=== PATIENT | female | born 1985 | race African-American/Black ===

== ENCOUNTER → 2017-01-13 | Outpatient (CLI) | payer OTHER ==
--- NOTE | 2017-01-13 13:49 | RAD ---
Obstetrical ultrasound, 01/13/2017: History: Check size and dates Transabdominal and transvaginal scans were obtained. The transabdominal scans are of limited value due to lack of bladder distention. There is a single intrauterine gestational sac. It contains a yolk sac and a pole demonstrating a crown-rump length of 1.2 cm. This suggests a gestational age of 7 weeks and 2 days, yielding a sonographic EDC of 08/30/2017. cardiac activity is present. There is a small hypoechoic area along the margin of the gestational sac. It measures approximately 6 mm in thickness and 20 mm in length. The appearance suggests a small subchorionic hemorrhage. The left ovary is unremarkable. The right ovary was not visualized. No free fluid is evident in the pelvis. IMPRESSION: 1. Single viable intrauterine fetus of 7-8 weeks gestational age. 2. Small subchorionic hemorrhage.
== END | disposition home or self-care (01) ==
LOC: US 12:14
DX: O20.8 Other hemorrhage in early pregnancy (principal); Z3A.08 8 weeks gestation of pregnancy
CPT/HCPCS: 76801; 76817

== ENCOUNTER → 2017-01-13 | Outpatient (CLI) | payer OTHER ==
--- NOTE | 2017-01-13 13:13 | RAD ---
Examination: 2 views of the chest History: History of positive TB reaction Comparison: None available Findings : The cardiomediastinal silhouette grossly appears unremarkable. There is no acute infiltrate or visualized pneumothorax identified. Impression: No acute cardiopulmonary findings.
== END | disposition home or self-care (01) ==
LOC: RAD 12:26
PROVIDERS: ATTEND Nurse Practitioner
DX: R76.12 Nonspecific reaction to cell mediated immunity measurement of gamma interferon antigen response without active tuberculosis (principal)
CPT/HCPCS: 71020

== ENCOUNTER 2017-07-23 01:33 | Observation (INO) | payer OTHER ==
[2017-07-23] MEDS ORDERED: IV RINGERS,LACTATED 1000ML 1,000 ML IV SCH (01:45)
[2017-07-23 01:48] LABS: BILIRUBIN,URINE NEGATIVE (NEG); GLUCOSE,URINE NEGATIVE (NEG); NITRITE,URINE NEGATIVE (NEG); PROTEIN,URINE NEGATIVE (NEG-TRACE); UROBILINOGEN,URINE 0.2 mg/dL (0.2 mg/dL)
[2017-07-23 01:55] LABS: BARBITURATES NEG (NEG); BENZODIAZEPINES NEG (NEG); CANNABINOIDS NEG (NEG); COCAINE NEG (NEG); METHADONE NEG (NEG); OPIATES NEG (NEG); PHENCYCLIDINE NEG (NEG)
[2017-07-23 02:05] LABS: BACTERIA,URINE MODERATE /HPF (0-FEW); RBC,URINE OCC /HPF (0-2); SQUAMOUS EPITHELIAL CELL,UR FEW /LPF
[2017-07-23] MEDS ORDERED: hydrOXYzine PAMOATE 25 MG CAPSULE PO ONE (02:45)
== END 2017-07-23 05:31 | disposition home or self-care (01) ==
LOC: 3 SO LND 01:33
PROVIDERS: ADMIT Specialist; ATTEND Specialist
DX: O26.893 Other specified pregnancy related conditions, third trimester (principal); M54.9 Dorsalgia, unspecified; R10.9 Unspecified abdominal pain; Z3A.35 35 weeks gestation of pregnancy
CPT/HCPCS: 80307; 81001; 87086; G0378; G0379; Q0177; G0479

== ENCOUNTER 2020-11-14 21:19 | Emergency (ER) | payer OTHER ==
[~2020-11-14] VITALS: Ht 165.1 cm; Wt 133.1 kg
[2020-11-14 21:53] LABS: BILIRUBIN,URINE NEGATIVE (NEG); CLARITY,URINE CLOUDY; COLOR,URINE YELLOW; NITRITE,URINE NEGATIVE (NEG); PROTEIN,URINE NEGATIVE (NEG-TRACE)
--- NOTE | 2020-11-14 22:00 | PHYS DOC ---
Past Medical History Past Medical History: No Pertinent History (RODERICK MATHIAS MATERIALS TECH) Past Surgical History: (RODERICK MATHIAS APRN) Smoking Status: Never Smoker Alcohol Use: None (RODERICK MATHIAS APRN) General Adult EDM: Chief Complaint: GI PROBLEM HPI: HPI: Patient is a 35 year old female who presents with epigastric sharp pain that comes and goes and she states it hurts when she takes of breath. Patient states started today at 1400. She states she had not ate anything. Patient denies nausea, vomiting, cough, fever, back pain, headache, dizziness, diarrhea, numbness or tingling. She states she took some ibuprofen at that time but it did not help. She states that she put an ice pack over the area did help. Patient's only history she states is C-sections. (RODERICK MATHIAS MATERIALS TECH) Review of Systems: Review of Systems: Constitutional: Denies fever or chills. [] Eyes: Denies change in visual acuity. [] HENT: Denies nasal congestion or sore throat. [] Respiratory: Denies cough. +shortness of breath. [] Cardiovascular: Denies chest pain or edema. [] GI: + Epigastric abdominal pain, denies nausea, vomiting, bloody stools or diarrhea. [] : Denies dysuria. [] Musculoskeletal: Denies back pain or joint pain. [] Integument: Denies rash. [] Neurologic: Denies headache, focal weakness or sensory changes. [] Endocrine: Denies polyuria or polydipsia. [] Lymphatic: Denies swollen glands. [] Psychiatric: Denies depression or anxiety. [] (RODERICK MATHIAS MATERIALS TECH) Heart Score: Risk Factors: Risk Factors: DM, Current or recent (<one month) smoker, HTN, HLP, family history of CAD, obesity. Risk Scores: Score 0 - 3: 2.5% MACE over next 6 weeks - Discharge Home Score 4 - 6: 20.3% MACE over next 6 weeks - Admit for Clinical Observation Score 7 - 10: 72.7% MACE over next 6 weeks - Early Invasive Strategies (RODERICK MATHIAS MATERIALS TECH) Allergies: Allergies: Allergies Coded Allergies Type Severity Reaction Last Updated Verified No Known Drug Allergies 07/23/17 No (RODERICK MATHIAS APRN) Physical Exam: PE: Constitutional: Well developed, well nourished, no acute distress, non-toxic appearance. [] HENT: Normocephalic, atraumatic, bilateral external ears normal, oropharynx moist, no oral exudates, nose normal. [] Eyes: PERRLA, EOMI, conjunctiva normal, no discharge. [] Neck: Normal range of motion, no tenderness, supple, no stridor. [] Cardiovascular:Heart rate regular rhythm, no murmur [] Lungs & Thorax: Bilateral breath sounds clear to auscultation [] Abdomen: Bowel sounds normal, soft, no tenderness, no masses, no pulsatile masses. [] Skin: Warm, dry, no erythema, no rash. [] Back: No tenderness, no CVA tenderness. [] Extremities: No tenderness, no cyanosis, no clubbing, ROM intact, no edema. [] Neurologic: Alert and oriented X 3, normal motor function, normal sensory function, no focal deficits noted. [] Psychologic: Affect normal, judgement normal, mood normal. Normal physical exam [] (RODERICK MATHIAS APRN) Current Patient Data: Labs: Laboratory Tests Test 11/14/20 21:48 POC Urine HCG, Qualitative Hcg negative (Negative) Vital Signs: Vital Signs Date Time Temp Pulse Resp B/P (MAP) Pulse Ox O2 Delivery O2 Flow Rate FiO2 11/14/20 21:33 97.6 82 16 164/97 (119) 98 Room Air 97.6 (RODERICK MATHIAS APRN) EKG: EK and read as normal sinus rhythm and no STEMI. [] (RODERICK MATHIAS APRN) Radiology/Procedures: Radiology/Procedures: [] Impression: [facility] [address] [place] [address] IMAGING REPORT Signed PATIENT: KUMAR CAMACHO ACCOUNT: [id number] : 1985 LOCATION: ER AGE: 35 SEX: F EXAM STATUS: REG ER ORD. PHYSICIAN: RODERICK MATHIAS APRN REASON: EPIGASTRIC PAIN, SOA PROCEDURE: PORTABLE CHEST 1V XR CHEST 1V History: Reason: EPIGASTRIC PAIN, SOA / Spl. Instructions: / History: Comparison: January 13, 2017 Findings: No consolidation or pleural effusion. Normal heart size. No pneumothorax. Impression: 1. No acute cardiopulmonary process. Electronically signed by: Stephan Samson DO (11/14/2020 10:27 PM) [facility] DICTATED and SIGNED BY: STEPHAN SAMSON DO DATE: 11/14/20 [id number] [facility] [address] [place] [address] IMAGING REPORT Signed PATIENT: KUMAR CAMACHO ACCOUNT: [id number] : 1985 LOCATION: ER AGE: 35 SEX: F EXAM STATUS: REG ER ORD. PHYSICIAN: RODERICK MATHIAS APRN REASON: pain with breathing, soa, ABD PAIN, OMNI 350 100 ML IV PROCEDURE: CT ANGIO CHEST W ABD PEL W/ EXAM: CT chest with contrast - pulmonary embolus protocol CLINICAL HISTORY: Reason: pain with breathing, soa, ABD PAIN, OMNI 350 100 ML IV / Spl. Instructions: / History: . COMPARISON: None. TECHNIQUE: CT of the chest following the administration of intravenous contrast during the pulmonary arterial phase. Axial, coronal and sagittal reformatted images were generated including MIP images. ---PQRS compliance statement - One or more of the following individualized dose reduction techniques were utilized for this study: 1. Automated exposure control 2. Adjustment of the mA and/or kV according to patient size 3. Use of iterative reconstruction technique--- FINDINGS: CHEST: Diagnostic quality: Suboptimal. Pulmonary emboli: No pulmonary emboli to the level of the segmental branches. More peripheral vessels are not well assessed. Right heart strain: None Pulmonary arteries: Normal in caliber. Heart is not enlarged. No pericardial effusion. No pleural effusion or pneumothorax. Thickening of the distal esophagus. No axillary lymphadenopathy. No mediastinal or hilar lymphadenopathy. Anterior mediastinal soft tissue density may represent residual sinus or prominent pericardial recess. Linear opacities in the middle lobe likely scarring/atelectasis. 5 mm right lower lobe lung nodule (image 113) is seen. Visualized Upper abdomen: Please see CT abdomen and pelvis report below for full pelvis details. Bones: No aggressive osseous lesion is seen. IMPRESSION: 1. Suboptimal contrast bolus. Within these constraints, no pulmonary emboli to the level of the segmental branches. More peripheral vessels are not well assessed. 2. 5 mm right lower lobe lung nodule. In a patient at low risk for lung cancer, no further follow-up is necessary. In a high-risk patient, follow-up CT in 12 months is recommended. 3. Diffuse distal esophageal thickening, nonspecific but may be seen with esophagitis. EXAM: CT Abdomen and Pelvis with IV contrast CLINICAL HISTORY: Reason: pain with breathing, soa, ABD PAIN, OMNI 350 100 ML IV / Spl. Instructions: / History: . COMPARISON: none TECHNIQUE: Helical CT of the abdomen and pelvis was performed following the administration of intravenous contrast. Axial, coronal and sagittal reformatted images were generated. PQRS compliance statement - One or more of the following individualized dose reduction techniques were utilized for this study: 1. Automated exposure control 2. Adjustment of the mA and/or kV according to patient size 3. Use of iterative reconstruction technique FINDINGS: Lower chest: Please see CT chest report above for full details. Abdomen and Pelvis: Mild hepatic hypoattenuation, likely fatty liver. Spleen, adrenal glands, pancreas and gallbladder are normal in appearance. No biliary duct dilatation. Symmetric nephrograms. No focal renal lesion. No hydronephrosis. Bladder is unremarkable. Appendix is normal. Moderate colonic stool content is seen. No small or large bowel dilatation. No bowel obstruction. Small fat-containing periumbilical hernia is seen. No associated inflammatory change. No abdominal or pelvic lymphadenopathy. No abdominal or pelvic ascites. No pn eumoperitoneum. Aorta is normal in caliber. Bones: Degenerative changes of the lower lumbar spine. IMPRESSION: 1. Hepatic hypoattenuation, likely fatty liver. 2. Moderate colonic stool content to be correlated for possible constipation. No bowel obstruction. 3. Appendix is normal. 4. Small fat-containing periumbilical hernia without associated inflammatory change. Electronically signed by: Roby Mariano MD (11/14/2020 11:28 PM) [facility] DI[facility]ATED and SIGNED BY: ROBY MARIANO MD DATE: 11/14/20 [id number] (RODERICK MATHIAS APRN) Course & Med Decision Making: Course & Med Decision Making Pertinent Labs and Imaging studies reviewed. (See chart for details) See HPI. Abdomen is soft and nontender. Speaks in full complete sentences. Ambulatory to steady gait. Skin pink warm and dry. There is no pain over the chest with palpation. Afebrile. Lungs are clear in upper lobes and diminished in lower lobes. [] (RODERICK MATHIAS APRN) Course & Med Decision Making I oversaw on the above date of service of this patient and discussed the care with the SENIOR APPLICATION SOFTWARE ENGINEER. I agree with the findings, plan of care, and disposition as documented. (YESIKA ACUNA DO) Dragon Disclaimer: Dragon Disclaimer: This electronic medical record was generated, in whole or in part, using a voice recognition dictation system. (RODERICK MATHIAS APRN) Departure Departure Impression: Primary Impression: Esophagitis Additional Impressions: Constipation Qualified Codes: K59.00 - Constipation, unspecified UTI (urinary tract infection) Qualified Codes: N39.0 - Urinary tract infection, site not specified Disposition: 01 DC HOME SELF CARE/HOMELESS Condition: STABLE Referrals: NO PCP (PCP) GARRETT VILLANUEVA MD Patient Instructions: Constipation, Adult, Diet for Gastroesophageal Reflux Disease, Adult, Esophagitis, Gastroesophageal Reflux Disease, Adult Additional Instructions: Follow up with primary care physician or GI doctor of which I have referred you too. Drink plenty of fluids. Take medication as prescribed. For worsening symptoms return to the ED. Scripts Cephalexin (CEPHALEXIN) 500 Mg Capsule 1 CAP PO BID for 7 Days, #14 CAP Prov: RAJATSAGRARIO JIMENEZDivina Sanchez APRN 11/14/20 Docusate Sodium (COLACE) 100 Mg Capsule 1 CAP PO BID for 30 Days, #60 CAP 0 Refills Prov: RODERICK MATHIAS APRN 11/14/20 Famotidine (PEPCID) 20 Mg Tablet 20 MG PO BID for 30 Days, #60 TAB Prov: RAJATRODERICKPOOJA Sanchez APRN 11/14/20 STEWRODERICKPOOJA Sanchez APRN Nov 14, 2020 22:00 YESIKA ACUNA DO Nov 15, 2020 00:36
[2020-11-14 22:02] LABS: BACTERIA,URINE MANY /HPF (0-FEW)
[2020-11-14 22:04] LABS: RBC,URINE 0 /HPF (0-2); YEAST,URINE PRESENT /HPF
[2020-11-14 22:19] LABS: BASO # 0.1 x10^3/uL (0.0-0.2); BASO % 1 % (0-3); EOS # 0.2 x10^3/uL (0.0-0.7); EOS % 2 % (0-3); HEMATOCRIT 38.5 % (36.0-47.0); HEMOGLOBIN 12.5 g/dL (12.0-15.5); LYMPH # 3.2 x10^3/uL (1.0-4.8); LYMPH % 29 % (24-48); MEAN CORPUSCULAR HEMOGLOBIN 25 pg (25-35); MEAN CORPUSCULAR HGB CONC 33 g/dL (31-37); MEAN CORPUSCULAR VOLUME 77 fL (79-100); MONO # 0.7 x10^3/uL (0.0-1.1); MONO % 7 % (0-9); NEUT # 6.7 x10^3/uL (1.8-7.7); NEUT % 62 % (31-73); PLATELET COUNT 258 x10^3/uL (140-400); RED CELL DISTRIBUTION WIDTH 15.2 % (11.5-14.5); WHITE BLOOD COUNT 10.9 x10^3/uL (4.0-11.0)
--- NOTE | 2020-11-14 22:29 | RAD ---
XR CHEST 1V History: Reason: EPIGASTRIC PAIN, SOA / Spl. Instructions: / History: Comparison: January 13, 2017 Findings: No consolidation or pleural effusion. Normal heart size. No pneumothorax. Impression: 1. No acute cardiopulmonary process. Electronically signed by: Stephan Samson DO (11/14/2020 10:27 PM) [facility]
[2020-11-14 22:30] LABS: CALCIUM 9.5 mg/dL (8.5-10.1); CREATININE 0.9 mg/dL (0.6-1.0); GFR 85.2; POTASSIUM 4.1 mmol/L (3.5-5.1)
[2020-11-14] MEDS ORDERED: IV NORMAL SALINE 1000ML BAG 1,000 ML IV SCH (22:30)
[2020-11-14] MEDS ORDERED: FAMOTIDINE 20 MG/2 ML VIAL IVP ONE (22:30)
[2020-11-14] MEDS ORDERED: fentaNYL PF VIAL 100 MCG/2 ML VIAL IVP ONE (22:30)
[2020-11-14] MEDS ORDERED: ASPIRIN 325 MG TABLET PO ONE (22:30)
[2020-11-14 22:35] LABS: ALBUMIN 3.5 g/dL (3.4-5.0); ALBUMIN/GLOBULIN RATIO 0.9 (1.0-1.7); TOTAL BILIRUBIN 0.2 mg/dL (0.2-1.0); TOTAL PROTEIN 7.6 g/dL (6.4-8.2)
[2020-11-14] MEDS ORDERED: FLUCONAZOLE 100 MG TABLET. PO ONE (23:00)
[2020-11-14] MEDS ORDERED: CONTRAST GIVEN. MC PRN (23:00)
[2020-11-14] MEDS ORDERED: IOHEXOL 350 MG/ML 100 ML VIAL. IV ONE (23:30)
--- NOTE | 2020-11-14 23:31 | RAD ---
EXAM: CT chest with contrast - pulmonary embolus protocol CLINICAL HISTORY: Reason: pain with breathing, soa, ABD PAIN, OMNI 350 100 ML IV / Spl. Instructions: / History: . COMPARISON: None. TECHNIQUE: CT of the chest following the administration of intravenous contrast during the pulmonary arterial phase. Axial, coronal and sagittal reformatted images were generated including MIP images. ---PQRS compliance statement - One or more of the following individualized dose reduction techniques were utilized for this study: 1. Automated exposure control 2. Adjustment of the mA and/or kV according to patient size 3. Use of iterative reconstruction technique--- FINDINGS: CHEST: Diagnostic quality: Suboptimal. Pulmonary emboli: No pulmonary emboli to the level of the segmental branches. More peripheral vessel s are not well assessed. Right heart strain: None Pulmonary arteries: Normal in caliber. Heart is not enlarged. No pericardial effusion. No pleural effusion or pneumothorax. Thickening of the distal esophagus. No axillary lymphadenopathy. No mediastinal or hilar lymphadenopathy. Anterior mediastinal soft tissu e density may represent residual sinus or prominent pericardial recess. Linear opacities in the middl e lobe likely scarring/atelectasis. 5 mm right lower lobe lung nodule (image 113) is seen. Visualized Upper abdomen: Please see CT abdomen and pelvis report below for full pelvis details. Bones: No aggressive osseous lesion is seen. IMPRESSION: 1. Suboptimal contrast bolus. Within these constraints, no pulmonary emboli to the level of the segm ental branches. More peripheral vessels are not well assessed. 2. 5 mm right lower lobe lung nodule. In a patient at low risk for lung cancer, no further follow-up is necessary. In a high-risk patient, follow-up CT in 12 months is recommended. 3. Diffuse distal esophageal thickening, nonspecific but may be seen with esophagitis. EXAM: CT Abdomen and Pelvis with IV contrast CLINICAL HISTORY: Reason: pain with breathing, soa, ABD PAIN, OMNI 350 100 ML IV / Spl. Instructions: / History: . COMPARISON: none TECHNIQUE: Helical CT of the abdomen and pelvis was performed following the administration of intrave nous contrast. Axial, coronal and sagittal reformatted images were generated. PQRS compliance statement - One or more of the following individualized dose reduction techniques wer e utilized for this study: 1. Automated exposure control 2. Adjustment of the mA and/or kV according to patient size 3. Use of iterative reconstruction technique FINDINGS: Lower chest: Please see CT chest report above for full details. Abdomen and Pelvis: Mild hepatic hypoattenuation, likely fatty liver. Spleen, adrenal glands, pancreas and gallbladder ar e normal in appearance. No biliary duct dilatation. Symmetric nephrograms. No focal renal lesion. No hydronephrosis. Bladder is unremarkable. Appendix is normal. Moderate colonic stool content is seen. No small or large bowel dilatation. No nic wel obstruction. Small fat-containing periumbilical hernia is seen. No associated inflammatory change. No abdominal or pelvic lymphadenopathy. No abdominal or pelvic ascites. No pneumoperitoneum. Aorta is normal in caliber. Bones: Degenerative changes of the lower lumbar spine. IMPRESSION: 1. Hepatic hypoattenuation, likely fatty liver. 2. Moderate colonic stool content to be correlated for possible constipation. No bowel obstruction. 3. Appendix is normal. 4. Small fat-containing periumbilical hernia without associated inflammatory change. Electronically signed by: Roby Baca MD (11/14/2020 11:28 PM) [facility]
[2020-11-14] MEDS ORDERED: FAMO-63 PO (23:38)
[2020-11-14] MEDS ORDERED: DOCU-109 PO (23:38)
[2020-11-14] MEDS ORDERED: CEPH500C PO (23:38)
[2020-11-15 00:10] VITALS: BP 122/55
--- NOTE | 2020-11-15 18:36 | EKG ---
[facility] [address] [place] [address] Test Date: 2020-11-14 Test Time: 22:32:12 Pat Name: KUMAR CAMACHO Department: Room: Gender: F Returned Case Inspector: : 1985 Requested By: RODERICK MATHIAS Order Number: [id number] Reading MD: Measurements Intervals [place] Rate: 64 P: 26 NC: 168 QRS: 4 QRSD: 92 T: 0 QT: 392 QTc: 404 Interpretive Statements SINUS RHYTHM NORMAL ECG RI6.01 No previous ECG available for comparison
== END 2020-11-15 00:16 | disposition home or self-care (01) ==
LOC: ER 21:19
DX: K20.90 Esophagitis, unspecified without bleeding (principal); N39.0 Urinary tract infection, site not specified; K59.00 Constipation, unspecified
CPT/HCPCS: 36415; 71045; 71275; 74177; 80053; 81001; 81025; 83690; 83880; 84484; 85025; 85379; 87086; 93005; 96361; 96374; 96375; 99285; J3010; J3490; J7030; Q9967

== ENCOUNTER 2021-06-06 20:55 | Emergency (ER) | payer OTHER ==
[~2021-06-06] VITALS: Ht 162.6 cm; Wt 127.3 kg
[~2021-06-06 20:55] MED LIST: CEPH500C PO; DOCU-109 PO; FAMO-63 PO
[2021-06-06] MEDS ORDERED: PROCHLORPERAZINE 10 MG/2 ML VIAL. IV ONE (22:45)
[2021-06-06] MEDS ORDERED: IV NORMAL SALINE 1000ML BAG 1,000 ML IV ONE (22:45)
--- NOTE | 2021-06-06 23:08 | PHYS DOC ---
Past Medical History Past Medical History: No Pertinent History (JAVON DASILVA IT FIELD TECHNICIAN) Past Surgical History: (JAVON DASILVA IT FIELD TECHNICIAN) Smoking Status: Never Smoker Alcohol Use: None (JAVON DASILVA IT FIELD TECHNICIAN) General Adult EDM: Chief Complaint: HEADACHE HPI: HPI: Patient is a 36 year old female 9 para 8 with 6 living children and 2 children, currently 20 weeks presenting to the ED today complainin g of mild frontal headache, generalized weakness and fatigue that began today 30 minutes prior to coming to the ED. Patient denies any abdominal pain, vaginal bleeding, nausea vomiting. She states she follows up with [facility] [employer]. Denies any back pain. She states she received her first Covid vaccine 3 weeks ago and is due for another one (JAVON DASILVA ) Review of Systems: Review of Systems: Constitutional: Reports fatigue, generalized weakness. Denies fever or chills. [] Eyes: Denies change in visual acuity. [] HENT: Denies nasal congestion or sore throat. [] Respiratory: Denies cough or shortness of breath. [] Cardiovascular: Denies chest pain or edema. [] GI: Reports being . Denies abdominal pain, nausea, vomiting, bloody stools or diarrhea. [] : Denies dysuria. [] Musculoskeletal: Denies back pain or joint pain. [] Integument: Denies rash. [] Neurologic: Reports headache, denies focal weakness or sensory changes. [] Endocrine: Denies polyuria or polydipsia. [] Lymphatic: Denies swollen glands. [] Psychiatric: Denies depression or anxiety. [] (JAVON DASILVA IT FIELD TECHNICIAN) Heart Score: C/O Chest Pain: N/A Risk Factors: Risk Factors: DM, Current or recent (<one month) smoker, HTN, HLP, family history of CAD, obesity. Risk Scores: Score 0 - 3: 2.5% MACE over next 6 weeks - Discharge Home Score 4 - 6: 20.3% MACE over next 6 weeks - Admit for Clinical Observation Score 7 - 10: 72.7% MACE over next 6 weeks - Early Invasive Strategies (JAVON DASILVA IT FIELD TECHNICIAN) Current Medications: Current Medications Medications (Trade) Dose Ordered Sig/Shauna Start Time Stop Time Status Last Admin Dose Admin Prochlorperazine Edisylate (Compazine) 10 mg 1X ONCE 06/06/21 22:45 06/06/21 22:46 DC Sodium Chloride 1,000 ml @ 1,000 mls/hr 1X ONCE 06/06/21 22:45 06/06/21 23:44 (JAVON DASILVA IT FIELD TECHNICIAN) Allergies: Allergies: Allergies Coded Allergies Type Severity Reaction Last Updated Verified No Known Drug Allergies 07/23/17 No (JAVON DASILVA IT FIELD TECHNICIAN) Physical Exam: PE: Constitutional: Well developed, well nourished, no acute distress, non-toxic appearance. [] HENT: Normocephalic, atraumatic, bilateral external ears normal, oropharynx moist, no oral exudates, nose normal. [] Eyes: PERRLA, EOMI, conjunctiva normal, no discharge. [] Neck: Normal range of motion, no tenderness, supple, no stridor. [] Cardiovascular:Heart rate regular rhythm, no murmur [] Lungs & Thorax: Bilateral breath sounds clear to auscultation [] Abdomen: Gravid abdomen. Bowel sounds normal, soft, no tenderness, no masses, no pulsatile masses. [] Skin: Warm, dry, no erythema, no rash. [] Back: No tenderness, no CVA tenderness. [] Extremities: No tenderness, no cyanosis, no clubbing, ROM intact, no edema. [] Neurologic: Alert and oriented X 3, normal motor function, normal sensory function, no focal deficits noted. Cranial nerves II through XII intact Psychologic: Affect normal, judgement normal, mood normal. [] (JAVNO DASILVA IT FIELD TECHNICIAN) Current Patient Data: Vital Signs: Vital Signs Date Time Temp Pulse Resp B/P (MAP) Pulse Ox O2 Delivery O2 Flow Rate FiO2 06/06/21 20:58 98.8 103 18 117/67 (77) 97 Room Air 98.8 (JAVON DASILVA IT FIELD TECHNICIAN) Vital Signs: Vital Signs Date Time Temp Pulse Resp B/P (MAP) Pulse Ox O2 Delivery O2 Flow Rate FiO2 06/07/21 00:24 78 19 97 06/06/21 23:54 80 19 96 06/06/21 23:24 80 18 98 06/06/21 22:58 92 18 98 8/7/21 22:24 82 18 98 06/06/21 20:58 98.8 103 18 117/67 (77) 97 Room Air 98.8 (SRI MIDDLETON DO) EKG: EKG: [] (JAVON DASILVA APRN) Radiology/Procedures: Radiology/Procedures: [] (JAVON DASILVA APRN) Course & Med Decision Making: Course & Med Decision Making Pertinent Labs and Imaging studies reviewed. (See chart for details) This is a 36-year-old female patient 9 para 8 presenting today complaining of generalized weakness, frontal headache, fatigue, symptoms began 30 minutes prior to coming to the ED. Labs were ordered. heart tones also ordered. [address] Middleton (JAVON DASILVA APRN) Course & Med Decision Making I assumed care pending urine which showed moderate bacteria, ketones. Patient was given sugar containing fluids. Likely dehydration. Her heart tones were 140-150s and appeared within normal limits. She clinically appears improved upon reevaluation and is stable for discharge with follow-up with [facility] (SRI MIDDLETON DO) Dragon Disclaimer: Skyler Disclaimer: This electronic medical record was generated, in whole or in part, using a voice recognition dictation system. (JAVON DASILVA APRN) Departure Departure Impression: Primary Impression: Headache Additional Impression: Weakness Disposition: 01 HOME / SELF CARE / HOMELESS Condition: GOOD Referrals: NO PCP (PCP) Additional Instructions: You are treated in the emergency department for dehydration. Your heart tones were within normal limits. You need to follow-up with your [facility] [facility] [employer] [employer] provider at your earliest convenience. Return to the emergency department there are any further concerns. I sent a prescription of Macrobid to your [facility] pharmacy, please draft roller picker this prescription and take for the full amount to treat the bacteria that we found in your urine today Scripts Nitrofurantoin Monohyd/M-Cryst (MACROBID 100 MG CAPSULE) 100 Mg Capsule 1 CAP PO BID for 5 Days, #10 CAP 0 Refills Prov: SRI MIDDLETON DO 06/07/21 JAVON DASILVA APRN Jun 06, 2021 23:08 SRI MIDDLETON DO Jun 07, 2021 03:38
[2021-06-06 23:12] LABS: BASO # 0.1 x10^3/uL (0.0-0.2); BASO % 1 % (0-3); EOS # 0.1 x10^3/uL (0.0-0.7); EOS % 1 % (0-3); HEMATOCRIT 32.7 % (36.0-47.0); HEMOGLOBIN 10.7 g/dL (12.0-15.5); LYMPH # 1.9 x10^3/uL (1.0-4.8); LYMPH % 20 % (24-48); MEAN CORPUSCULAR HEMOGLOBIN 24 pg (25-35); MEAN CORPUSCULAR HGB CONC 33 g/dL (31-37); MEAN CORPUSCULAR VOLUME 74 fL (79-100); MONO # 0.6 x10^3/uL (0.0-1.1); MONO % 6 % (0-9); NEUT # 6.8 x10^3/uL (1.8-7.7); NEUT % 72 % (31-73); PLATELET COUNT 245 x10^3/uL (140-400); RED BLOOD COUNT 4.42 x10^6/uL (3.50-5.40); RED CELL DISTRIBUTION WIDTH 16.8 % (11.5-14.5); WHITE BLOOD COUNT 9.4 x10^3/uL (4.0-11.0)
[2021-06-06 23:23] LABS: CREATININE 0.7 mg/dL (0.6-1.0); GFR 113.3; POTASSIUM 3.5 mmol/L (3.5-5.1)
[2021-06-06 23:29] LABS: ALBUMIN 2.9 g/dL (3.4-5.0); ALBUMIN/GLOBULIN RATIO 0.7 (1.0-1.7); TOTAL BILIRUBIN 0.1 mg/dL (0.2-1.0); TOTAL PROTEIN 7.2 g/dL (6.4-8.2)
[2021-06-07 01:46] LABS: BILIRUBIN,URINE NEGATIVE (NEG); CLARITY,URINE CLEAR; COLOR,URINE YELLOW; NITRITE,URINE NEGATIVE (NEG); PROTEIN,URINE 30 mg/dL (NEG-TRACE); UROBILINOGEN,URINE 0.2 mg/dL (0.2 mg/dL)
[2021-06-07 02:01] LABS: BACTERIA,URINE MODERATE /HPF (0-FEW); RBC,URINE 0 /HPF (0-2)
[2021-06-07] MEDS ORDERED: IV NORMAL SALINE 1000ML BAG 1,000 ML IV ONE (02:15)
[2021-06-07] MEDS ORDERED: IV DEXTROSE 5% - 0.9 % NACL 1,000 ML IV ONE (02:15)
[2021-06-07] MEDS ORDERED: NITR100C62 PO (03:36)
[2021-06-07 03:54] VITALS: BP 100/55
--- NOTE | 2021-06-08 11:59 | NUR ---
IP: Attempted to contact pt concerning covid results. No answer, no voicemail box.
--- NOTE | 2021-06-09 10:39 | NUR ---
IP: Attempted a second time to contact pt concerning covid results. Again no answer.
== END 2021-06-07 04:28 | disposition home or self-care (01) ==
LOC: ER 20:55
DX: O26.892 Other specified pregnancy related conditions, second trimester (principal); Z20.822 Contact with and (suspected) exposure to COVID-19; R51.9 Headache, unspecified; R53.1 Weakness; Z3A.20 20 weeks gestation of pregnancy
CPT/HCPCS: 36415; 80053; 81001; 81025; 85025; 87086; 87426; 96361; 96365; 96375; 99285; J0780; J7030; J7042; U0003; U0005

== ENCOUNTER 2021-10-31 09:32 | Emergency (ER) | payer OTHER ==
[~2021-10-31] VITALS: Ht 162.6 cm; Wt 127.0 kg
[~2021-10-31 09:32] MED LIST changes: +NITR100C62 PO
[2021-10-31 09:47] VITALS: BP 167/113
[2021-10-31 10:43] LABS: BASO % 1 % (0-3); EOS # 0.1 x10^3/uL (0.0-0.7); EOS % 2 % (0-3); HEMATOCRIT 29.6 % (36.0-47.0); HEMOGLOBIN 9.7 g/dL (12.0-15.5); LYMPH # 1.6 x10^3/uL (1.0-4.8); LYMPH % 27 % (24-48); MEAN CORPUSCULAR HEMOGLOBIN 26 pg (25-35); MEAN CORPUSCULAR HGB CONC 33 g/dL (31-37); MEAN CORPUSCULAR VOLUME 80 fL (79-100); MONO # 0.5 x10^3/uL (0.0-1.1); MONO % 8 % (0-9); NEUT # 3.8 x10^3/uL (1.8-7.7); NEUT % 63 % (31-73); PLATELET COUNT 256 x10^3/uL (140-400); RED BLOOD COUNT 3.72 x10^6/uL (3.50-5.40); RED CELL DISTRIBUTION WIDTH 18.6 % (11.5-14.5); WHITE BLOOD COUNT 6.1 x10^3/uL (4.0-11.0)
[2021-10-31] MEDS ORDERED: CONTRAST GIVEN. MC PRN (10:45)
[2021-10-31] MEDS ORDERED: IOHEXOL 300 MG/ML 100ML VIAL. IV ONE (10:45)
[2021-10-31 10:49] LABS: CALCIUM 8.2 mg/dL (8.5-10.1); CREATININE 0.7 mg/dL (0.6-1.0); GFR 113.3; POTASSIUM 4.3 mmol/L (3.5-5.1)
--- NOTE | 2021-10-31 11:52 | RAD ---
EXAMINATION: CT abdomen and pelvis with IV contrast. INDICATION:36 years, Female, vertical wound dehiscence, foul-smelling. TECHNIQUE: Axial CT images of the abdomen and pelvis were obtained. Coronal and sagittal reformatted performed. COMPARISON: None. Exposure: One or more of the following individualized dose reduction techniques were utilized for thi s examination: 1. Automated exposure control 2. Adjustment of the mA and/or kV according to patient size 3. Use of iterative reconstruction technique. FINDINGS: LOWER CHEST: Unremarkable. ABDOMEN/PELVIS: Mild hepatomegaly measures up to 18 cm in length. Subcentimeter hypodensity in the left hepatic lobe, too small to characterize. Mild splenomegaly measures up to 14 cm in length. Gallbladder, biliary du cts, pancreas, adrenals and kidneys are unremarkable. No bowel obstruction. Unremarkable appendix. Normal caliber abdominal aorta. Mesenteric arteries and portal vein are patent. No abdominopelvic lymphadenopathy by size criteria. No pneumoperitoneum or as cites. Underdistended urinary bladder which limits evaluation. Grossly unremarkable uterus. Minimal f at stranding in the pelvis, likely postsurgical. MUSCULOSKELETAL STRUCTURES: Postsurgical changes along the lower anterior abdominal wall with diffuse skin thickening and fat str anding. Multiloculated 13.5 x 3.0 x 3.7 cm rim-enhancing fluid collection in the subcutaneous tissue of the anterior lower abdominal wall, inseparable from the abdomen wall musculatures. Small fat-conta ining umbilical hernia. No acute process process. IMPRESSION: 1. Postsurgical changes along the lower anterior abdominal wall with skin thickening and fat strandin g. Multiloculated 13.5 x 3.0 x 3.7 cm rim-enhancing fluid collection in the subcutaneous tissue of th e anterior lower abdominal wall. Findings suspicious for abscess with cellulitis. 2. Mild hepatosplenomegaly. Electronically signed by: Chantel Yuen MD (10/31/2021 11:50 AM) [id number]
[2021-10-31] MEDS ORDERED: cefTRIAXone IV Push 1 GM VIAL. IVP ONE (12:00)
--- NOTE | 2021-10-31 12:13 | PHYS DOC ---
Past Medical History Past Medical History: No Pertinent History Past Surgical History: Additional Past Surgical Histo: 5 C-SECTIONS Smoking Status: Never Smoker Alcohol Use: None General Adult EDM: Chief Complaint: POST-OP PROBLEM HPI: HPI: Patient is a 36 year old female status post on 10/06 at [facility] who presents with concerns of wound dehiscence, increasing pain, and foul-smelling discharge from her surgical site. Symptoms have been worsening over the past 4 days. Reportedly called the OB clinic, but was directed to the emergency department at [facility]. She went to [facility] last night, and left without being seen. States that she waited for 7 hours. She denies fevers, chills, nausea, vomiting, sweats, or other systemic symptoms. She does complain of a 2 cm area of dehiscence at the top of her vertical surgical site. Review of Systems: Review of Systems: Constitutional: Denies fever or chills. [] Eyes: Denies change in visual acuity. [] HENT: Denies nasal congestion or sore throat. [] Respiratory: Denies cough or shortness of breath. [] Cardiovascular: Denies chest pain or edema. [] GI: Abdominal wound dehiscence, foul-smelling odor, pain. No nausea/vomiting. : Denies dysuria. [] Musculoskeletal: Denies back pain or joint pain. [] Integument: Denies rash. [] Neurologic: Denies headache, focal weakness or sensory changes. [] Psychiatric: Denies depression or anxiety. [] Heart Score: C/O Chest Pain: No Current Medications: Current Medications Medications (Trade) Dose Ordered Sig/Shauna Start Time Stop Time Status Last Admin Dose Admin Ceftriaxone Sodium (Rocephin) 1 gm 1X ONCE 10/31/21 12:00 10/31/21 12:01 DC Info (CONTRAST GIVEN -- Rx MONITORING) 1 each PRN DAILY PRN 10/31/21 10:45 11/02/21 10:44 Iohexol (Omnipaque 300 Mg/ml) 75 ml 1X ONCE 10/31/21 10:45 10/31/21 10:46 DC 10/31/21 11:05 75 ML Allergies: Allergies: Allergies Coded Allergies Type Severity Reaction Last Updated Verified No Known Drug Allergies 07/23/17 No Physical Exam: PE: Constitutional no distress, nontoxic appearing HENT: Normocephalic, atraumatic Cardiovascular:Heart rate regular rhythm, no murmur [] Lungs & Thorax: Bilateral breath sounds clear to auscultation [] Abdomen: Obese abdomen, midline vertical surgical wound from umbilicus down towards pubis. The top 2 cm shows evidence of dehiscence, approximately 2 cm deep. Mild surrounding erythema. Yellow thick discharge present. Tender underlying the surgical incision, more tender towards the cephalad portion. Skin: See abdominal exam, otherwise warm, dry. Extremities: No tenderness, no cyanosis, no clubbing, ROM intact, no edema. [] Neurologic: Alert and oriented X 3, normal motor function, normal sensory function, no focal deficits noted. [] Psychologic: Affect normal, judgement normal, mood normal. [] Current Patient Data: Labs: Laboratory Tests Test 10/31/21 10:28 10/31/21 10:49 White Blood Count 6.1 x10^3/uL (4.0-11.0) Red Blood Count 3.72 x10^6/uL (3.50-5.40) Hemoglobin 9.7 g/dL (12.0-15.5) L Hematocrit 29.6 % (36.0-47.0) L Mean Corpuscular Volume 80 fL (79-100) Mean Corpuscular Hemoglobin 26 pg (25-35) Mean Corpuscular Hemoglobin Concent 33 g/dL (31-37) Red Cell Distribution Width 18.6 % (11.5-14.5) H Platelet Count 256 x10^3/uL (140-400) Neutrophils (%) (Auto) 63 % (31-73) Lymphocytes (%) (Auto) 27 % (24-48) Monocytes (%) (Auto) 8 % (0-9) Eosinophils (%) (Auto) 2 % (0-3) Basophils (%) (Auto) 1 % (0-3) Neutrophils # (Auto) 3.8 x10^3/uL (1.8-7.7) Lymphocytes # (Auto) 1.6 x10^3/uL (1.0-4.8) Monocytes # (Auto) 0.5 x10^3/uL (0.0-1.1) Eosinophils # (Auto) 0.1 x10^3/uL (0.0-0.7) Basophils # (Auto) 0.0 x10^3/uL (0.0-0.2) Sodium Level 140 mmol/L (136-145) Potassium Level 4.3 mmol/L (3.5-5.1) Chloride Level 106 mmol/L (98-107) Carbon Dioxide Level 28 mmol/L (21-32) Anion Gap 6 (6-14) Blood Urea Nitrogen 11 mg/dL (7-20) Creatinine 0.7 mg/dL (0.6-1.0) Estimated GFR (Cockcroft-Gault) 113.3 Glucose Level 96 mg/dL (70-99) Calcium Level 8.2 mg/dL (8.5-10.1) L POC Urine HCG, Qualitative Hcg negative (Negative) Laboratory Tests 10/31/21 10:28 Laboratory Tests 10/31/21 10:28 Vital Signs: Vital Signs Date Time Temp Pulse Resp B/P (MAP) Pulse Ox O2 Delivery O2 Flow Rate FiO2 10/31/21 09:47 97.8 60 16 167/113 (131) 98 Room Air 97.8 EKG: EKG: [] Radiology/Procedures: Radiology/Procedures: [] Impression: [facility] [address] [place], [place] [id number] IMAGING REPORT Signed PATIENT: KUMAR CAMACHO ACCOUNT: [id number] : 1985 LOCATION: ER AGE: 36 SEX: F EXAM STATUS: REG ER ORD. PHYSICIAN: CHLOE MORENO MD REASON: vertical , wound dehiscense, foul smelling discharge PROCEDURE: CT ABD PELV W/ IV CONTRST ONLY EXAMINATION: CT abdomen and pelvis with IV contrast. INDICATION:36 years, Female, vertical wound dehiscence, foul-smelling. TECHNIQUE: Axial CT images of the abdomen and pelvis were obtained. Coronal and sagittal reformatted performed. COMPARISON: None. Exposure: One or more of the following individualized dose reduction techniques were utilized for this examination: 1. Automated exposure control 2. Adjustment of the mA and/or kV according to patient size 3. Use of iterative reconstruction technique. FINDINGS: LOWER CHEST: Unremarkable. ABDOMEN/PELVIS: Mild hepatomegaly measures up to 18 cm in length. Subcentimeter hypodensity in the left hepatic lobe, too small to characterize. Mild splenomegaly measures up to 14 cm in length. Gallbladder, biliary ducts, pancreas, adrenals and kidneys are unremarkable. No bowel obstruction. Unremarkable appendix. Normal caliber abdominal aorta. Mesenteric arteries and portal vein are patent. No abdominopelvic lymphadenopathy by size criteria. No pneumoperitoneum or ascites. Underdistended urinary bladder which limits evaluation. Grossly unremarkable uterus. Minimal fat stranding in the pelvis, likely postsurgical. MUSCULOSKELETAL STRUCTURES: Postsurgical changes along the lower anterior abdominal wall with diffuse skin thickening and fat stranding. Multiloculated 13.5 x 3.0 x 3.7 cm rim-enhancing fluid collection in the subcutaneous tissue of the anterior lower abdominal wall, inseparable from the abdomen wall musculatures. Small fat-containing umbilical hernia. No acute process process. IMPRESSION: 1. Postsurgical changes along the lower anterior abdominal wall with skin thickening and fat stranding. Multiloculated 13.5 x 3.0 x 3.7 cm rim-enhancing fluid collection in the subcutaneous tissue of the anterior lower abdominal wall. Findings suspicious for abscess with cellulitis. 2. Mild hepatosplenomegaly. Electronically signed by: Lynne Yuen MD (10/31/2021 11:50 AM) [id number] DICTATED and SIGNED BY: LYNNE YUEN MD DATE: 10/31/21 [id number] 0 Course & Med Decision Making: Course & Med Decision Making Pertinent Labs and Imaging studies reviewed. (See chart for details) Patient 36-year-old female with a history of multiple C-sections s/p latest C- section on 10/06 with [facility] obstetrics who presents with partial wound dehiscence, pain, and foul-smelling discharge from her surgical site. Fortunately, afebrile, hemodynamically stable and overall well-appearing on e xam. CT shows multiloculated rim-enhancing fluid collection concerning for abscess measuring 13.5 x 3.0 x 3.7 cm. We will discuss with [facility] regarding transfer. Has been given IV ceftriaxone and vancomycin has been ordered. 1208 Patient has been accepted at [facility] for transfer. Accepting physician, Dr. Herrera. Skyler Disclaimer: Skyler Disclaimer: This electronic medical record was generated, in whole or in part, using a voice recognition dictation system. Departure Departure Impression: Primary Impression: Abdominal wall abscess Disposition: 02 SHORT TERM HOSPITAL Condition: STABLE Referrals: NO PCP (PCP) CHLOE MORENO MD Oct 31, 2021 12:12
[2021-10-31] MEDS ORDERED: VANCOMYCIN 1.5 GM in IV NORMAL SALINE 500ML BAG 500 ML IV ONE (12:30)
[2021-10-31] MEDS ORDERED: ONDANSETRON PF 4 MG/2 ML VIAL. ONE (13:07)
[2021-10-31] MEDS ORDERED: ONDANSETRON PF 4 MG/2 ML VIAL. IVP ONE (13:15)
== END 2021-10-31 15:50 | disposition short-term general hospital (02) ==
LOC: ER 09:32
DX: L02.211 Cutaneous abscess of abdominal wall (principal); R16.2 Hepatomegaly with splenomegaly, not elsewhere classified; Z20.822 Contact with and (suspected) exposure to COVID-19
CPT/HCPCS: 36415; 74177; 80048; 81025; 85025; 87426; 96365; 96375; 99285; J0696; J2405; J3370; J7040; Q9967; U0003; U0005